=== PATIENT | male | born 1960 | race Caucasian/White ===

== ENCOUNTER 2018-11-26 16:12 | Inpatient (IN) | payer OTHER ==
[2018-11-26 18:49] VITALS: BMI 23.2
--- NOTE | 2018-11-26 20:05 | HP ---
"CIWA Score Nausea/Vomitin-No Nausea/No Vomiting Muscle Tremors: 4-Moderate,w/Arms Extend Anxiety: 3 Agitation: 3 Paroxysmal Sweats: 3 Orientation: 3-Disoriented Date>2 days Tacttile Disturbances: 0-None Auditory Disturbances: 0-None Visual Disturbances: 0-None Headache: 2-Mild CIWA-Ar Total Score: 18 - Admission Criteria [facility]ASAS Guidelines: Admission for Medically Managed Detox: Requires at least one of the followin. CIWA greater than 12 2. Seizures within the past 24 hours 3. Delirium tremens within the past 24 hours 4. Hallucinations within the past 24 hours 5. Acute intervention needed for co occurring medical disorder 6. Acute intervention needed for co occurring psychiatric disorder 7. Severe withdrawal that cannot be handled at a lower level of care (continued vomiting, continued diarrhea, abnormal vital signs) requiring intravenous medication and/or fluids 8. Patient presents the following: CIWA greater than 12 Admission Criteria Met: Admission criteria met Admission ROS [facility] Chief Complaint: Having withdrawal symptoms. Allergies/Adverse Reactions: Allergies Allergy/AdvReac Type Severity Reaction Status Date / Time Penicillins Allergy Intermediate Rash Verified 11/26/18 18:46 History of Present Illness: First admission for [address] detox @ [facility]. Here for alcohol detox. Has had treatment in other facilities in the past. Alcohol use began at age 13. Current use x 10 years. States becomes forgetful and confused when drinks. Denies other substance use. PMHx: HTN; Psoriasis; Asthma (last exacerbation 2 years ago); Past gastric ulcer MHHx: Depression, anxiety, insomnia. Denies thoughts of harming self or others. Does not see a MH Provider. Search Terms: Joshua Manleyez, 1960 Search Date: 11/26/2018 08:03:12 PM The Drug Utilization Report below displays all of the controlled substance prescriptions, if any, that your patient has filled in the last twelve months. The information displayed on this report is compiled from pharmacy submissions to the Department, and accurately reflects the information as submitted by the pharmacies. This report was requested by: Ann Park | Reference #: [id number] There are no results for the search terms that you entered. Exam Limitations: No Limitations - Ebola screening Have you traveled outside of the country in the last 21 days: No Have you had contact with anyone from an Ebola affected area: No Have you been sick,other than usual withdrawal symptoms: No (Denies recent exposure to measles) Do you have a fever: No - Review of Systems Constitutional: Chills, Diaphoresis, Changes in sleep (Difficulty staying asleep ) EENT: reports: Cataracts (Thinks may have a catarct - has an appt schedules), Blurred Vision Respiratory: reports: No Symptoms reported Cardiac: reports: Palpitations (Palpatations when drinks alot) GI: reports: Diarrhea (Brown, watery r/t alcohol use and past hx ulcer. Used to take Zantac) : reports: No Symptoms Reported Musculoskeletal: reports: No Symptoms Reported Integumentary: reports: Rash (Psoriasis) Endocrine: reports: Increased Thirst Hematology: reports: No Symptoms Reported Psychiatric: reports: Judgement Intact, Agitated, Anxious, Disorientated ( Unsure of month, year, or date) Other Systems: Reviewed and Negative Patient History - Smoking Cessation Smoking history: Never smoked Have you smoked in the past 12 months: No Hx Chewing Tobacco Use: No Initiated information on smoking cessation: No - Substance & Tx. History Hx Alcohol Use: Yes Hx Substance Use: Yes Substance Use Type: Alcohol Hx Substance Use Treatment: Yes (multiple detoxes) - Substances abused Alcohol Substance route: Oral Frequency: Daily Amount used: 3 (40 oz )beers Age of first use: 13 Date of last use: 11/26/18 Admission Physical Exam S - Vital Signs Vital Signs: Vital Signs - 24 hr 11/26/18 11/26/18 18:46 19:11 Temperature 98.8 F 98.8 F Pulse Rate 79 79 Respiratory 18 18 Rate Blood Pressure 134/83 134/83 - Physical General Appearance: Yes: Nourished, Mild Distress, Alcohol on Breath, Tremorous , Irritable, Sweating, Anxious HEENTM: Yes: EOMI (Jerking movement of eyes upon lateral gaze), Hearing grossly Normal, Normocephalic, GAYATHRI, Pharynx Normal, Other (Scleral erythema w/ injection.) Respiratory: Yes: Lungs Clear, Normal Breath Sounds, No Respiratory Distress Neck: Yes: No masses,lesions,Nodules, Supple Breast: Yes: Breast Exam Deferred Cardiology: Yes: Regular Rhythm, Regular Rate, S1, S2 Abdominal: Yes: Non Tender, Flat, Soft, Increased Bowel Sounds Genitourinary: Yes: Within Normal Limits Back: Yes: Normal Inspection Musculoskeletal: Yes: full range of Motion Extremities: Yes: Normal Capillary Refill, Normal Range of Motion, Tremors ( gross) Neurological: Yes: assignment officer II-XII NML intact (Jerking movement of eyes upon lateral gaze), Alert, Motor Strength 5/5, Normal Response, Disoriented Integumentary: Yes: Normal Color, Warm, Other (Generalized, large rediish patches w/ mcgee, shiny tissue.(Head, back, legs, arms)) Lymphatic: Yes: Within Normal Limits - Diagnostic (1) Alcohol dependence with uncomplicated withdrawal Current Visit: Yes Status: Acute (2) Psoriasis Current Visit: Yes Status: Chronic (3) Insomnia Current Visit: Yes Status: Chronic Qualifiers: Insomnia type: unspecified Qualified Code(s): G47.00 - Insomnia, unspecified (4) History of asthma Current Visit: No Status: Chronic (5) Acid reflux Current Visit: Yes Status: Chronic Qualifiers: Esophagitis presence: without esophagitis Qualified Code(s): K21.9 - Gastro -esophageal reflux disease without esophagitis (6) Nystagmus Current Visit: Yes Status: Acute (7) Hypertension Current Visit: Yes Status: Chronic Qualifiers: Hypertension type: unspecified Qualified Code(s): I10 - Essential (primary ) hypertension Cleared for Admission [facility] - Detox or Rehab [facility] Level of Care: Medically Managed Detox Regimen/Protocol: Librium Claeared for Rehab Admission: No Breathalyzer - Breathalyzer Breathalyzer: 0.172 Urine Drug Screen - Test Device Lot number: [id number] Expiration date: 08/12/19 - Control Is test valid?: Yes - Results Drug screen NEGATIVE: Yes Inpatient Rehab Admission - Rehab Decision to Admit Inpatient rehab admission?: No"
[2018-11-26] MEDS ORDERED: MAGNESIUM CITRATE 300 ML BOTTLE PO PRN (20:35)
[2018-11-26] MEDS ORDERED: MENTHOL/PHENOL 1 EACH UD MM PRN (20:35)
[2018-11-26] MEDS ORDERED: MAGNESIUM HYDROX 2400MG/30ML ORAL SUSPENSION 30 ML CUP PO PRN (20:35)
[2018-11-26] MEDS ORDERED: ACETAMINOPHEN 325 MG TABLET (FP) PO PRN ×2 (20:35)
[2018-11-26] MEDS ORDERED: MAG HYDROX/AL HYDROX/SIMETH 30 ML UNIT-DOSE CUP PO PRN (20:35)
[2018-11-26] MEDS ORDERED: IBUPROFEN 400 MG TABLET (FP) PO PRN (20:35)
[2018-11-26] MEDS ORDERED: METHOCARBAMOL 500 MG TABLET PO PRN (20:35)
[2018-11-26] MEDS ORDERED: BISMUTH SUBSALICYLATE 524 MG/30 ML UD PO PRN (20:35)
[2018-11-26] MEDS ORDERED: PROCHLORPERAZINE MALEATE 5 MG TABLET PO PRN (20:35)
[2018-11-26] MEDS ORDERED: ALBUTEROL SO4 0.083% IH SOL 2.5 MG/3 ML VIAL.NEB. NEB PRN (20:38)
[2018-11-26] MEDS ORDERED: chlordiazePOXIDE HCL 10 MG CAPSULE PO ONE (21:30)
[2018-11-26] MEDS ORDERED: BETAMETHASONE DIP 0.05% TP LOTION 30 ML BOTTLE TP SCH (22:00)
[2018-11-26] MEDS: chlordiazePOXIDE HCL 25 MG CAPSULE PO SCH (22:54)
[2018-11-26] MEDS: THIAMINE HCL 100 MG TABLET (FP) PO SCH (22:56)
[2018-11-27] MEDS: chlordiazePOXIDE HCL 25 MG CAPSULE PO SCH ×4 (05:27→22:16)
[2018-11-27] MEDS: chlordiazePOXIDE HCL 25 MG CAPSULE PO PRN ×2 (07:24→14:30)
[2018-11-27 10:00] LABS: HEMATOCRIT 41.5 % (35.4-49); HEMOGLOBIN 13.9 GM/dL (11.7-16.9); MCH 31.6 pg (25.7-33.7); MCHC 33.5 g/dl (32.0-35.9); MEAN CELL VOLUME 94.4 fl (80-96); MEAN PLT VOLUME 8.7 fl (7.5-11.1); PLATELET COUNT 55 K/MM3 (134-434); RDW 13.6 % (11.9-15.9); WHITE BLOOD COUNT 3.1 K/mm3 (4.0-10.0)
[2018-11-27] MEDS ORDERED: BETAMETHASONE DIP 0.05% TP LOTION 30 ML BOTTLE TP SCH (10:00)
[2018-11-27] MEDS: RANITIDINE HCL 150 MG TABLET (FP) PO SCH (10:08)
[2018-11-27] MEDS: LISINOPRIL 20 MG TABLET (FP) PO SCH (10:08)
[2018-11-27] MEDS: PRENATAL VITAMINS W/ FOLIC ACID TABLET (FP) PO SCH (10:08)
[2018-11-27 10:13] LABS: ALBUMIN 3.9 g/dl (3.4-5.0); BILIRUBIN,TOTAL 0.8 mg/dL (0.2-1); CALCIUM 9.2 mg/dL (8.5-10.1); CREATININE 0.6 mg/dL (0.55-1.3); POTASSIUM 3.8 mmol/L (3.5-5.1); TOT PROT 8.9 g/dl (6.4-8.2)
[2018-11-27 10:16] LABS: URINE APPEARANCE CLEAR; URINE BILIRUBIN NEGATIVE (NEGATIVE); URINE COLOR YELLOW; URINE GLUCOSE (UA) NEGATIVE (NEGATIVE); URINE KETONE NEGATIVE (NEGATIVE); URINE LEUK ESTERASE NEGATIVE (NEGATIVE); URINE NITRITE NEGATIVE (NEGATIVE); URINE PROTEIN NEGATIVE (NEGATIVE); URINE UROBILINOGEN 0.2 mg/dL (0.2-1.0)
--- NOTE | 2018-11-27 10:53 | EKG ---
Test Reason : Blood Pressure : / mmHG Vent. Rate : 071 BPM Atrial Rate : 071 BPM P-R Int : 170 ms QRS Dur : 098 ms QT Int : 424 ms P-R-T Axes : 045 025 039 degrees QTc Int : 460 ms NORMAL SINUS RHYTHM NON-SPECIFIC INTRA-VENTRICULAR CONDUCTION DELAY NO PREVIOUS ECGS AVAILABLE Confirmed by TIM SEVILLA MD ([id number]) on 11/27/2018 10:52:52 AM Referred By: Confirmed By:TIM SEVILLA MD
--- NOTE | 2018-11-27 13:12 | PN ---
S CIWA - CIWA Score Nausea/Vomitin-Mild Nausea/No Vomiting (DIARRHEA) Muscle Tremors: 4-Moderate,w/Arms Extend Anxiety: 4-Mod. Anxious/Guarded Agitation: 4-Moderately Restless Paroxysmal Sweats: 1-Minimal Palms Moist Orientation: 0-Oriented Tacttile Disturbances: 0-None Auditory Disturbances: 0-None Visual Disturbances: 0-None Headache: 0-None Present CIWA-Ar Total Score: 14 BHS Progress Note (SOAP) Subjective: ANXIETY, TREMORS, IRRITABILITY,INTERMITTENT SLEEP. HX SEVERE PSORIASIS. Objective: 11/27/18 13:08 Vital Signs 11/27/18 11/27/18 11/27/18 05:30 06:00 06:08 Temperature 98.6 F Pulse Rate 84 82 82 Respiratory 18 18 18 Rate Blood Pressure 161/89 11/27/18 11/27/18 11/27/18 06:30 07:00 07:25 Temperature 97.8 F Pulse Rate 99 H 107 H 123 H Respiratory 18 18 18 Rate Blood Pressure 158/98 11/27/18 11/27/18 11/27/18 07:30 08:00 08:30 Temperature Pulse Rate 123 H 122 H 120 H Respiratory 18 18 Rate Blood Pressure 11/27/18 09:39 Temperature 96.4 F L Pulse Rate 109 H Respiratory 18 Rate Blood Pressure 156/93 Laboratory Tests 11/26/18 11/27/18 11/27/18 11:09 07:45 07:45 WBC 3.1 L RBC 4.40 Hgb 13.9 Hct 41.5 MCV 94.4 MCH 31.6 MCHC 33.5 RDW 13.6 Plt Count 55 L MPV 8.7 Sodium 140 Potassium 3.8 Chloride 105 Carbon Dioxide 27 Anion Gap 8 BUN 9 Creatinine 0.6 Est GFR (CKD-EPI)AfAm 129.36 Est GFR (CKD-EPI)NonAf 111.61 Random Glucose 93 Calcium 9.2 Total Bilirubin 0.8 AST 278 H ALT 114 H Alkaline Phosphatase 74 Total Protein 8.9 H Albumin 3.9 Urine Color Yellow Urine Appearance Clear Urine pH 5.0 Ur Specific [place] 1.011 Urine Protein Negative Urine Glucose (UA) Negative Urine Ketones Negative Urine Blood Negative Urine Nitrite Negative Urine Bilirubin Negative Urine Urobilinogen 0.2 Ur Leukocyte Esterase Negative ELEVATED AST/ALT Assessment: 11/27/18 13:09 WITHDRAWAL SX Plan: CONTINUE DETOX BETAMETHASONE OINTMENT TO AFFECTED SKIN AREAS DIRECTED. MELATONIN FOR INSOMNIA DIRECTED. INCREASE PO FLUIDS REPEAT ALT/AST ON 11/29/18
[2018-11-27] MEDS: BETAMETHASONE DIP 0.05% TP LOTION 30 ML BOTTLE TP SCH (22:16)
[2018-11-27] MEDS: THIAMINE HCL 100 MG TABLET (FP) PO SCH (22:16)
[2018-11-27] MEDS: MELATONIN 5 MG TABLETS PO PRN (22:17)
[2018-11-28] MEDS: chlordiazePOXIDE HCL 25 MG CAPSULE PO SCH ×3 (05:35→17:47)
[2018-11-28] MEDS ORDERED: cloNIDine HCL 0.1 MG TABLET PO PRN (08:45)
[2018-11-28] MEDS: BETAMETHASONE DIP 0.05% TP LOTION 30 ML BOTTLE TP SCH ×2 (10:09→22:42)
[2018-11-28] MEDS: RANITIDINE HCL 150 MG TABLET (FP) PO SCH (10:10)
[2018-11-28] MEDS: PRENATAL VITAMINS W/ FOLIC ACID TABLET (FP) PO SCH (10:10)
[2018-11-28] MEDS: LISINOPRIL 20 MG TABLET (FP) PO SCH (10:10)
--- NOTE | 2018-11-28 13:03 | PN ---
[facility] CIWA - CIWA Score Nausea/Vomitin-Mild Nausea/No Vomiting Muscle Tremors: 3 Anxiety: 2 Agitation: 2 Paroxysmal Sweats: 1-Minimal Palms Moist Orientation: 0-Oriented Tacttile Disturbances: 0-None Auditory Disturbances: 0-None Visual Disturbances: 0-None Headache: 1-Very Mild CIWA-Ar Total Score: 10 S Progress Note (SOAP) Subjective: long history of hypertension treated with lisinopril 20 mg po daily addition clonidine 0.1 mg po q6h prn Objective: 11/28/18 13:05 Vital Signs Temperature 99.8 F H 11/28/18 09:07 Pulse Rate 87 11/28/18 09:07 Respiratory Rate 18 11/28/18 09:07 Blood Pressure 139/79 11/28/18 09:07 O2 Sat by Pulse Oximetry (%) Laboratory Last Values WBC 3.1 K/mm3 (4.0-10.0) L 11/27/18 07:45 RBC 4.40 M/mm3 (4.00-5.60) 11/27/18 07:45 Hgb 13.9 GM/dL (11.7-16.9) 11/27/18 07:45 Hct 41.5 % (35.4-49) 11/27/18 07:45 MCV 94.4 fl (80-96) 11/27/18 07:45 MCH 31.6 pg (25.7-33.7) 11/27/18 07:45 MCHC 33.5 g/dl (32.0-35.9) 11/27/18 07:45 RDW 13.6 % (11.9-15.9) 11/27/18 07:45 Plt Count 55 K/MM3 (134-434) L 11/27/18 07:45 MPV 8.7 fl (7.5-11.1) 11/27/18 07:45 Sodium 140 mmol/L (136-145) 11/27/18 07:45 Potassium 3.8 mmol/L (3.5-5.1) 11/27/18 07:45 Chloride 105 mmol/L (98-107) 11/27/18 07:45 Carbon Dioxide 27 mmol/L (21-32) 11/27/18 07:45 Anion Gap 8 MMOL/L (8-16) 11/27/18 07:45 BUN 9 mg/dL (7-18) 11/27/18 07:45 Creatinine 0.6 mg/dL (0.55-1.3) 11/27/18 07:45 Est GFR (CKD-EPI)AfAm 129.36 11/27/18 07:45 Est GFR (CKD-EPI)NonAf 111.61 11/27/18 07:45 Random Glucose 93 mg/dL (74-106) 11/27/18 07:45 Calcium 9.2 mg/dL (8.5-10.1) 11/27/18 07:45 Total Bilirubin 0.8 mg/dL (0.2-1) 11/27/18 07:45 AST 278 U/L (15-37) H 11/27/18 07:45 ALT 114 U/L (13-61) H 11/27/18 07:45 Alkaline Phosphatase 74 U/L (45-117) 11/27/18 07:45 Total Protein 8.9 g/dl (6.4-8.2) H 11/27/18 07:45 Albumin 3.9 g/dl (3.4-5.0) 11/27/18 07:45 Urine Color Yellow 11/26/18 11:09 Urine Appearance Clear 11/26/18 11:09 Urine pH 5.0 (5.0-8.0) 11/26/18 11:09 Ur Specific [place] 1.011 (1.010-1.035) 11/26/18 11:09 Urine Protein Negative (NEGATIVE) 11/26/18 11:09 Urine Glucose (UA) Negative (NEGATIVE) 11/26/18 11:09 Urine Ketones Negative (NEGATIVE) 11/26/18 11:09 Urine Blood Negative (NEGATIVE) 11/26/18 11:09 Urine Nitrite Negative (NEGATIVE) 11/26/18 11:09 Urine Bilirubin Negative (NEGATIVE) 11/26/18 11:09 Urine Urobilinogen 0.2 mg/dL (0.2-1.0) 11/26/18 11:09 Ur Leukocyte Esterase Negative (NEGATIVE) 11/26/18 11:09 RPR Titer Nonreactive (NONREACTIVE) 11/27/18 07:45 lab noted repeat cbc repeat ast 11/28/18 13:07 Assessment: 11/28/18 13:07 alcohol withdrawal sx Plan: continue detox
[2018-11-28] MEDS: THIAMINE HCL 100 MG TABLET (FP) PO SCH (22:15)
[2018-11-28] MEDS: MELATONIN 5 MG TABLETS PO PRN (22:16)
[2018-11-28] MEDS ORDERED: chlordiazePOXIDE HCL 10 MG CAPSULE PO PRN (23:00)
[2018-11-28] MEDS: chlordiazePOXIDE HCL 10 MG CAPSULE PO SCH (23:05)
[2018-11-29] MEDS: chlordiazePOXIDE HCL 10 MG CAPSULE PO SCH ×3 (05:39→18:10)
[2018-11-29] MEDS: RANITIDINE HCL 150 MG TABLET (FP) PO SCH (10:22)
[2018-11-29] MEDS: PRENATAL VITAMINS W/ FOLIC ACID TABLET (FP) PO SCH (10:22)
[2018-11-29] MEDS: LISINOPRIL 20 MG TABLET (FP) PO SCH (10:22)
[2018-11-29] MEDS: BETAMETHASONE DIP 0.05% TP LOTION 30 ML BOTTLE TP SCH ×2 (10:23→22:15)
[2018-11-29 12:46] LABS: BASO % 0.8 % (0-2.0); HEMATOCRIT 39.9 % (35.4-49); HEMOGLOBIN 13.4 GM/dL (11.7-16.9); LYMPH % 16.9 % (8-40); MCH 31.7 pg (25.7-33.7); MCHC 33.5 g/dl (32.0-35.9); MEAN CELL VOLUME 94.4 fl (80-96); MEAN PLT VOLUME 9.2 fl (7.5-11.1); MONO % 12.9 % (3.8-10.2); NEUT % 64.4 % (42.8-82.8); PLATELET COUNT 61 K/MM3 (134-434); RBC 4.23 M/mm3 (4.00-5.60); WHITE BLOOD COUNT 3.5 K/mm3 (4.0-10.0)
--- NOTE | 2018-11-29 13:38 | PN ---
S CIWA - CIWA Score Nausea/Vomitin-Mild Nausea/No Vomiting Muscle Tremors: 1-None Visible, but [place] Anxiety: 1-Mildly Anxious Agitation: 1-Slight > Activity Paroxysmal Sweats: No Perspiration Orientation: 0-Oriented Tacttile Disturbances: 0-None Auditory Disturbances: 0-None Visual Disturbances: 0-None Headache: 1-Very Mild CIWA-Ar Total Score: 5 BHS Progress Note (SOAP) Subjective: feeling better sleep better at night more energy well-rested social with peers in day room discuss aftercare with staff to remain sober Objective: 11/29/18 13:39 Vital Signs Temperature 97.3 F L 11/29/18 13:32 Pulse Rate 92 H 11/29/18 13:32 Respiratory Rate 18 11/29/18 13:32 Blood Pressure 116/75 11/29/18 13:32 O2 Sat by Pulse Oximetry (%) Laboratory Last Values WBC 3.5 K/mm3 (4.0-10.0) L 11/29/18 08:55 RBC 4.23 M/mm3 (4.00-5.60) 11/29/18 08:55 Hgb 13.4 GM/dL (11.7-16.9) 11/29/18 08:55 Hct 39.9 % (35.4-49) 11/29/18 08:55 MCV 94.4 fl (80-96) 11/29/18 08:55 MCH 31.7 pg (25.7-33.7) 11/29/18 08:55 MCHC 33.5 g/dl (32.0-35.9) 11/29/18 08:55 RDW 13.0 % (11.9-15.9) 11/29/18 08:55 Plt Count 61 K/MM3 (134-434) L 11/29/18 08:55 MPV 9.2 fl (7.5-11.1) 11/29/18 08:55 Absolute Neuts (auto) 2.2 K/mm3 (1.5-8.0) 11/29/18 08:55 Neutrophils % 64.4 % (42.8-82.8) 11/29/18 08:55 Lymphocytes % 16.9 % (8-40) 11/29/18 08:55 Monocytes % 12.9 % (3.8-10.2) H 11/29/18 08:55 Eosinophils % 5.0 % (0-4.5) H 11/29/18 08:55 Basophils % 0.8 % (0-2.0) 11/29/18 08:55 Nucleated RBC % 0 % (0-0) 11/29/18 08:55 Sodium 140 mmol/L (136-145) 11/27/18 07:45 Potassium 3.8 mmol/L (3.5-5.1) 11/27/18 07:45 Chloride 105 mmol/L (98-107) 11/27/18 07:45 Carbon Dioxide 27 mmol/L (21-32) 11/27/18 07:45 Anion Gap 8 MMOL/L (8-16) 11/27/18 07:45 BUN 9 mg/dL (7-18) 11/27/18 07:45 Creatinine 0.6 mg/dL (0.55-1.3) 11/27/18 07:45 Est GFR (CKD-EPI)AfAm 129.36 11/27/18 07:45 Est GFR (CKD-EPI)NonAf 111.61 11/27/18 07:45 Random Glucose 93 mg/dL (74-106) 11/27/18 07:45 Calcium 9.2 mg/dL (8.5-10.1) 11/27/18 07:45 Total Bilirubin 0.8 mg/dL (0.2-1) 11/27/18 07:45 AST 494 U/L (15-37) H 11/29/18 08:55 ALT 114 U/L (13-61) H 11/27/18 07:45 Alkaline Phosphatase 74 U/L (45-117) 11/27/18 07:45 Total Protein 8.9 g/dl (6.4-8.2) H 11/27/18 07:45 Albumin 3.9 g/dl (3.4-5.0) 11/27/18 07:45 Urine Color Yellow 11/26/18 11:09 Urine Appearance Clear 11/26/18 11:09 Urine pH 5.0 (5.0-8.0) 11/26/18 11:09 Ur Specific [place] 1.011 (1.010-1.035) 11/26/18 11:09 Urine Protein Negative (NEGATIVE) 11/26/18 11:09 Urine Glucose (UA) Negative (NEGATIVE) 11/26/18 11:09 Urine Ketones Negative (NEGATIVE) 11/26/18 11:09 Urine Blood Negative (NEGATIVE) 11/26/18 11:09 Urine Nitrite Negative (NEGATIVE) 11/26/18 11:09 Urine Bilirubin Negative (NEGATIVE) 11/26/18 11:09 Urine Urobilinogen 0.2 mg/dL (0.2-1.0) 11/26/18 11:09 Ur Leukocyte Esterase Negative (NEGATIVE) 11/26/18 11:09 RPR Titer Nonreactive (NONREACTIVE) 11/27/18 07:45 lab noted ast elevation strong recommend follow up with primary care provider for liver enzyme elevation bring in lab report to follow up appointment discuss alcohol misuse related liver enzyme elevation 11/29/18 13:45 Assessment: 11/29/18 13:47 alcohol withdrawal sx 11/29/18 13:47 repeat ast Plan: continue detox
[2018-11-29] MEDS ORDERED: ALBUTEROL SO4 8 GM HFA INHALER IH PRN (13:44)
[2018-11-29] MEDS: THIAMINE HCL 100 MG TABLET (FP) PO SCH (22:14)
[2018-11-29] MEDS: MELATONIN 5 MG TABLETS PO PRN (22:15)
[2018-11-29] MEDS ORDERED: chlordiazePOXIDE HCL 10 MG CAPSULE PO SCH (23:00)
[2018-11-30 09:05] VITALS: BP 133/87; PULSE 80; TEMP 98.9
[2018-11-30] MEDS: BETAMETHASONE DIP 0.05% TP LOTION 30 ML BOTTLE TP SCH (10:09)
[2018-11-30] MEDS: LISINOPRIL 20 MG TABLET (FP) PO SCH (10:09)
[2018-11-30] MEDS: PRENATAL VITAMINS W/ FOLIC ACID TABLET (FP) PO SCH (10:09)
[2018-11-30] MEDS: RANITIDINE HCL 150 MG TABLET (FP) PO SCH (10:09)
--- NOTE | 2018-11-30 15:41 | DS ---
[facility] Detox Discharge Summary Admission Date: 11/26/18 Discharge Date: 11/30/18 - History Present History: Alcohol Dependence Additional Comments: 58 years old male admitted on 11/26/18 for alcohol withdrawal stabilization completed detox regimen aftercare [facility] Pertinent Past History: bring in medication list and lab report to aftercare appointment - Physical Exam Results Vital Signs: Vital Signs Temperature 98.9 F 11/30/18 09:05 Pulse Rate 80 11/30/18 09:05 Respiratory Rate 18 11/30/18 09:05 Blood Pressure 133/87 11/30/18 09:05 O2 Sat by Pulse Oximetry (%) Pertinent Admission Physical Exam Findings: alcohol withdrawal sx Laboratory Last Values WBC 3.5 K/mm3 (4.0-10.0) L 11/29/18 08:55 RBC 4.23 M/mm3 (4.00-5.60) 11/29/18 08:55 Hgb 13.4 GM/dL (11.7-16.9) 11/29/18 08:55 Hct 39.9 % (35.4-49) 11/29/18 08:55 MCV 94.4 fl (80-96) 11/29/18 08:55 MCH 31.7 pg (25.7-33.7) 11/29/18 08:55 MCHC 33.5 g/dl (32.0-35.9) 11/29/18 08:55 RDW 13.0 % (11.9-15.9) 11/29/18 08:55 Plt Count 61 K/MM3 (134-434) L 11/29/18 08:55 MPV 9.2 fl (7.5-11.1) 11/29/18 08:55 Absolute Neuts (auto) 2.2 K/mm3 (1.5-8.0) 11/29/18 08:55 Neutrophils % 64.4 % (42.8-82.8) 11/29/18 08:55 Lymphocytes % 16.9 % (8-40) 11/29/18 08:55 Monocytes % 12.9 % (3.8-10.2) H 11/29/18 08:55 Eosinophils % 5.0 % (0-4.5) H 11/29/18 08:55 Basophils % 0.8 % (0-2.0) 11/29/18 08:55 Nucleated RBC % 0 % (0-0) 11/29/18 08:55 Sodium 140 mmol/L (136-145) 11/27/18 07:45 Potassium 3.8 mmol/L (3.5-5.1) 11/27/18 07:45 Chloride 105 mmol/L (98-107) 11/27/18 07:45 Carbon Dioxide 27 mmol/L (21-32) 11/27/18 07:45 Anion Gap 8 MMOL/L (8-16) 11/27/18 07:45 BUN 9 mg/dL (7-18) 11/27/18 07:45 Creatinine 0.6 mg/dL (0.55-1.3) 11/27/18 07:45 Est GFR (CKD-EPI)AfAm 129.36 11/27/18 07:45 Est GFR (CKD-EPI)NonAf 111.61 11/27/18 07:45 Random Glucose 93 mg/dL (74-106) 11/27/18 07:45 Calcium 9.2 mg/dL (8.5-10.1) 11/27/18 07:45 Total Bilirubin 0.8 mg/dL (0.2-1) 11/27/18 07:45 AST 354 U/L (15-37) H 11/30/18 07:00 ALT 114 U/L (13-61) H 11/27/18 07:45 Alkaline Phosphatase 74 U/L (45-117) 11/27/18 07:45 Total Protein 8.9 g/dl (6.4-8.2) H 11/27/18 07:45 Albumin 3.9 g/dl (3.4-5.0) 11/27/18 07:45 Urine Color Yellow 11/26/18 11:09 Urine Appearance Clear 11/26/18 11:09 Urine pH 5.0 (5.0-8.0) 11/26/18 11:09 Ur Specific [place] 1.011 (1.010-1.035) 11/26/18 11:09 Urine Protein Negative (NEGATIVE) 11/26/18 11:09 Urine Glucose (UA) Negative (NEGATIVE) 11/26/18 11:09 Urine Ketones Negative (NEGATIVE) 11/26/18 11:09 Urine Blood Negative (NEGATIVE) 11/26/18 11:09 Urine Nitrite Negative (NEGATIVE) 11/26/18 11:09 Urine Bilirubin Negative (NEGATIVE) 11/26/18 11:09 Urine Urobilinogen 0.2 mg/dL (0.2-1.0) 11/26/18 11:09 Ur Leukocyte Esterase Negative (NEGATIVE) 11/26/18 11:09 RPR Titer Nonreactive (NONREACTIVE) 11/27/18 07:45 lab noted bring in lab report to follow up ast elevation discuss alcohol misuse related ast elevation - Treatment Hospital Course: Detox Protocol Followed, Detoxed Safely, Responded well, Discharged Condition Good, Rehab Referral Accepted Patient has Accepted a Rehab Referral to: [facility] - Medication Discharge Medications: Ambulatory Orders Lisinopril 20 mg PO DAILY #14 tablet 11/29/18 - Diagnosis (1) Alcohol dependence with uncomplicated withdrawal Status: Acute (2) Hypertension Status: Chronic Qualifiers: Hypertension type: essential hypertension Qualified Code(s): I10 - Essential (primary) hypertension - AMA Did Patient Leave Against Medical Advice: No
== END 2018-11-30 10:46 | disposition home or self-care (01) | DRG 775 ==
LOC: YASAS 16:12 → Y3N 21:21
PROVIDERS: ADMIT Surgery; ATTEND Surgery
PROC: HZ2ZZZZ Detoxification Services for Substance Abuse Treatment (ICD-10-PCS; principal; 2018-11-26)
DX: F10.230 Alcohol dependence with withdrawal, uncomplicated (principal); I10 Essential (primary) hypertension; L40.9 Psoriasis, unspecified; G47.00 Insomnia, unspecified; K21.9 Gastro-esophageal reflux disease without esophagitis; H55.00 Unspecified nystagmus; Z88.0 Allergy status to penicillin
CPT/HCPCS: 36415; 80053; 81003; 84450; 85025; 85027; 86593; 93005; 93010; J0735

== ENCOUNTER 2023-08-27 01:02 | Observation (INO) | payer OTHER ==
[2023-08-27] MEDS ORDERED: chlordiazePOXIDE HCL 25 MG CAPSULE ONE (02:27)
[2023-08-27 02:29] LABS: HEMATOCRIT 34.2 % (35.4-49); HEMOGLOBIN 12.1 GM/dL (11.7-16.9); MCH 32.1 pg (25.7-33.7); MCHC 35.2 g/dl (32.0-35.9); MEAN CELL VOLUME 91.2 fl (80-96); MEAN PLT VOLUME 8.6 fl (7.5-11.1); PLATELET COUNT 260 10^3/uL (134-434); RBC 3.75 M/mm3 (4.00-5.60); RDW 13.7 % (11.9-15.9); WHITE BLOOD COUNT 4.4 K/mm3 (4.0-10.0)
[2023-08-27] MEDS: chlordiazePOXIDE HCL 25 MG CAPSULE PO ONE (02:29)
[2023-08-27 02:35] LABS: INR 1.17 (0.83-1.09); PROTHROMBIN TIME (PATIENT) 13.6 SEC (9.7-13.0)
[2023-08-27 02:38] LABS: ACTIVATED PTT 29.1 SECONDS (25.2-36.5)
[2023-08-27 02:55] LABS: POTASSIUM 3.5 mmol/L (3.5-5.1)
[2023-08-27 02:57] LABS: CALCIUM 9.1 mg/dL (8.5-10.1)
[2023-08-27 02:58] LABS: ALBUMIN 3.2 g/dl (3.4-5.0); MAGNESIUM 2.3 mg/dL (1.8-2.4)
[2023-08-27 03:00] LABS: CREATININE 0.7 mg/dL (0.55-1.3)
[2023-08-27 03:02] LABS: BILIRUBIN,TOTAL 0.5 mg/dL (0.2-1); TOT PROT 7.4 g/dl (6.4-8.2)
[2023-08-27 03:06] LABS: N-TERMINAL BNP 306.8 pg/ml (5-125)
[2023-08-27 03:30] LABS: ANISOCYTOSIS 0; MACROCYTOSIS 0; ROULEAU 1+
[2023-08-27] MEDS ORDERED: LORazepam 1 MG TABLET PO PRN (06:23)
[2023-08-27] MEDS: INSULIN ASPART SLIDING SCALE (NOVOLOG) 1 VIAL SQ SCH ×2 (06:31→07:20)
[2023-08-27 06:49] LABS: EPI CELLS 7 /uL (0-25.1); HYALINE CASTS 1 /uL (0-3.1); URINE APPEARANCE CLEAR; URINE BACTERIA 57 /uL (0-1359); URINE BILIRUBIN NEGATIVE (NEGATIVE); URINE COLOR DK YELLOW; URINE GLUCOSE (UA) NEGATIVE (NEGATIVE); URINE KETONE NEGATIVE (NEGATIVE); URINE LEUK ESTERASE TRACE (NEGATIVE); URINE NITRITE NEGATIVE (NEGATIVE); URINE PROTEIN NEGATIVE (NEGATIVE); URINE RBC 19 /uL (0-23.9); URINE WBC 20 /uL (0-25.8)
[2023-08-27 07:31] LABS: HEMOGLOBIN 12.4 GM/dL (11.7-16.9); MCH 31.7 pg (25.7-33.7); MCHC 34.5 g/dl (32.0-35.9); MEAN CELL VOLUME 91.7 fl (80-96); MEAN PLT VOLUME 8.8 fl (7.5-11.1); PLATELET COUNT 247 10^3/uL (134-434); RBC 3.92 M/mm3 (4.00-5.60); RDW 13.6 % (11.9-15.9); WHITE BLOOD COUNT 3.9 K/mm3 (4.0-10.0)
[2023-08-27 07:44] LABS: PHENCYCLIDINE,URINE NEGATIVE (NEGATIVE); URINE BARBITURATES NEGATIVE (NEGATIVE)
[2023-08-27 07:45] LABS: METHADONE, UR NEGATIVE (NEGATIVE); OPIATES, URI NEGATIVE (NEGATIVE)
[2023-08-27 07:46] LABS: COCAINE, UR NEGATIVE (NEGATIVE); URINE AMPHETAMINES NEGATIVE (NEGATIVE); URINE BENZODIAZEPINES POSITIVE (NEGATIVE)
[2023-08-27 07:51] LABS: POTASSIUM 3.6 mmol/L (3.5-5.1)
[2023-08-27 07:53] LABS: ALBUMIN 3.2 g/dl (3.4-5.0); BLOOD UREA NITROGEN 15.8 mg/dL (7-18); CALCIUM 8.8 mg/dL (8.5-10.1); MAGNESIUM 2.4 mg/dL (1.8-2.4)
[2023-08-27 07:56] LABS: CREATININE 0.7 mg/dL (0.55-1.3)
[2023-08-27 07:57] LABS: PHOSPHOROUS 3.8 mg/dL (2.5-4.9)
[2023-08-27 07:58] LABS: BILIRUBIN,TOTAL 0.7 mg/dL (0.2-1); TOT PROT 7.2 g/dl (6.4-8.2)
[2023-08-27] MEDS ORDERED: ENOXAPARIN NA (PORCINE) 40 MG/0.4 ML DISP.SYRIN SQ SCH (10:00)
[2023-08-27] MEDS: THIAMINE HCL 100 MG TABLET (FP) PO SCH (11:31)
[2023-08-27] MEDS: ASPIRIN COATED 81 MG TABLET.EC PO SCH (11:31)
[2023-08-27] MEDS: APIXABAN 5 MG TABLET PO SCH (11:32)
[2023-08-27] MEDS: FUROSEMIDE 20 MG TABLET (FP) PO SCH (11:32)
[2023-08-27] MEDS: SPIRONOLACTONE 25 MG TABLET PO SCH (11:32)
[2023-08-27] MEDS: FLUoxetine HCL 20 MG CAPSULE PO SCH (11:32)
[2023-08-27] MEDS: FOLIC ACID 1 MG TABLET (FP) PO SCH (11:32)
[2023-08-27] MEDS: FOLIC ACID INJECTION - 1 MG, THIAMINE HCL 100 MG, MULTIVIT INJECTION ADULT 10 ML in SOD... IVPB ONE (12:34)
[2023-08-27] MEDS: TRIAMCINOLONE ACET 0.5% CREAM 15 GM TUBE TP SCH (13:35)
[2023-08-27] MEDS: FLU VACCINE (FLULAVAL) PF 60 MCG/0.5 ML SYRINGE 2023-2024 IM ONE (14:56)
[2023-08-27] MEDS: SACUBITRIL/VALSARTAN 24 MG-26 MG TABLET PO SCH ×2 (15:05→15:22)
[2023-08-27 16:08] VITALS: BMI 21.2
[2023-08-27] MEDS: ATORVASTATIN CA 40 MG TABLET (FP) PO SCH (21:50)
[2023-08-27] MEDS: MIRTAZAPINE 15 MG TABLET (FP) PO SCH (21:50)
[2023-08-28 07:19] LABS: HEMOGLOBIN 12.8 GM/dL (11.7-16.9); MCH 31.8 pg (25.7-33.7); MCHC 34.7 g/dl (32.0-35.9); MEAN CELL VOLUME 91.5 fl (80-96); MEAN PLT VOLUME 8.6 fl (7.5-11.1); PLATELET COUNT 265 10^3/uL (134-434); RBC 4.04 M/mm3 (4.00-5.60); RDW 13.4 % (11.9-15.9); WHITE BLOOD COUNT 4.4 K/mm3 (4.0-10.0)
[2023-08-28] MEDS ORDERED: REGADENOSON 0.4 MG/5 ML PRE-FILLED SYRINGE IVPUSH ONE (12:07)
[2023-08-28] MEDS: EMPAGLIFLOZIN (JARDIANCE) 25 MG TABLET PO SCH (13:02)
[2023-08-28] MEDS: REGADENOSON 0.4 MG/5 ML PRE-FILLED SYRINGE IVPUSH ONE (13:45)
[2023-08-28] MEDS ORDERED: EMPAGLIFLOZIN (JARDIANCE) 10 MG TABLET PO SCH (14:56)
[2023-08-28 15:18] VITALS: BP 106/80; PULSE 95; RESP 18; TEMP 99
[2023-08-28] MEDS ORDERED: CARVEDILOL 6.25 MG TABLET (FP) PO SCH (20:00)
== END 2023-08-28 16:36 | disposition home or self-care (01) ==
LOC: JER 01:02 → JERBED 03:39 → J4W 12:20
PROVIDERS: ADMIT Internal Medicine; ATTEND Internal Medicine
PROC: 3E033GC Introduction of Other Therapeutic Substance into Peripheral Vein, Percutaneous Approach (ICD-10-PCS; principal; 2023-08-27)
PROC: 3E023GC Introduction of Other Therapeutic Substance into Muscle, Percutaneous Approach (ICD-10-PCS; 2023-08-27)
PROC: 3E033GC Introduction of Other Therapeutic Substance into Peripheral Vein, Percutaneous Approach (ICD-10-PCS; 2023-08-27)
DX: Z13.89 Encounter for screening for other disorder (principal); F10.99 Alcohol use, unspecified with unspecified alcohol-induced disorder; I48.91 Unspecified atrial fibrillation; E11.9 Type 2 diabetes mellitus without complications; I10 Essential (primary) hypertension; E78.5 Hyperlipidemia, unspecified; R77.8 Other specified abnormalities of plasma proteins; I44.7 Left bundle-branch block, unspecified; K27.9 Peptic ulcer, site unspecified, unspecified as acute or chronic, without hemorrhage or perforation; J45.909 Unspecified asthma, uncomplicated; N32.81 Overactive bladder; R07.9 Chest pain, unspecified; R06.02 Shortness of breath; R42 Dizziness and giddiness; R11.0 Nausea; R50.9 Fever, unspecified; R19.7 Diarrhea, unspecified; R55 Syncope and collapse; L40.9 Psoriasis, unspecified; Z29.89 Encounter for other specified prophylactic measures; Z88.0 Allergy status to penicillin; F17.200 Nicotine dependence, unspecified, uncomplicated
CPT/HCPCS: 0241U-QW; 36415; 71045-TC-FY; 74176-TC; 76705-TC; 78452-TC; 80053; 80061; 80307; 81003; 82550; 82962; 83735; 83880; 84100; 84443; 84484; 85025; 85027; 85610; 85730; 90471; 90686; 93005; 93010; 93017; 93306-TC; 96365; 96372; 96375; 97116-GP; 97161-GP; 99285-25; A9502; G0378; J2785

== ENCOUNTER 2024-03-21 11:09 | Inpatient (IN) | payer OTHER ==
[2024-03-21 11:30] VITALS: BMI 22.1
[2024-03-21] MEDS ORDERED: BENZOCAINE/MENTHOL (CHLORASEPTIC ) LOZENGE MM PRN (12:37)
[2024-03-21] MEDS ORDERED: IBUPROFEN 400 MG TABLET (FP) PO PRN (12:37)
[2024-03-21] MEDS ORDERED: NICOTINE POLACRILEX 2 MG LOZENGE BC PRN (12:37)
[2024-03-21] MEDS ORDERED: P-EPHED 60MG/TRIPROLIDI 2.5MG TABLET PO PRN (12:37)
[2024-03-21] MEDS ORDERED: IBUPROFEN 600 MG TABLET (FP) PO PRN (12:37)
[2024-03-21] MEDS ORDERED: BENZONATATE 200 MG CAPSULE PO PRN (12:37)
[2024-03-21] MEDS ORDERED: NICOTINE POLACRILEX 2 MG GUM BUC PRN (12:37)
[2024-03-21] MEDS ORDERED: LOPERAMIDE HCL 2 MG CAPSULE PO PRN (12:37)
[2024-03-21] MEDS ORDERED: METHOCARBAMOL 500 MG TABLET PO PRN (12:37)
[2024-03-21] MEDS ORDERED: NALOXONE (NARCAN) HCL 4 MG/0.1 ML SPRAY NS PRN (12:37)
[2024-03-21] MEDS ORDERED: ONDANSETRON *ODT* 4 MG TABLET SL PRN (12:37)
[2024-03-21] MEDS ORDERED: guaiFENesin 600 MG TABLET.ER (FP) PO PRN (12:37)
[2024-03-21] MEDS ORDERED: BISMUTH SUBSALICYLATE 524 MG/30 ML PO PRN (12:37)
[2024-03-21] MEDS ORDERED: MAGNESIUM HYDROX 2400MG/30ML ORAL SUSPENSION 30 ML CUP PO PRN (12:37)
[2024-03-21] MEDS ORDERED: NALOXONE HCL 0.4 MG/ML VIAL IM PRN (12:37)
[2024-03-21] MEDS ORDERED: DICYCLOMINE HCL 10 MG CAPSULE PO PRN (12:37)
[2024-03-21] MEDS ORDERED: MAG HYDROX/AL HYDROX/SIMETH 30 ML UNIT-DOSE CUP PO PRN (12:37)
[2024-03-21] MEDS ORDERED: POLYETHYLENE GLYCOL (HEALTHYLAX) 3350 17 GM PACKET PO PRN (12:37)
[2024-03-21] MEDS: ACETAMINOPHEN 325 MG TABLET (FP) PO PRN (13:51)
[2024-03-21] MEDS: BRIMONIDINE TARTRATE 0.2% OPHTHALMIC 5 ML BOTTLE OD SCH (15:00)
[2024-03-21] MEDS: APIXABAN 5 MG TABLET PO SCH (21:28)
[2024-03-21] MEDS: MELATONIN 5 MG TABLETS PO SCH (21:28)
[2024-03-21] MEDS: DORZOLAMIDE 2% HCL OPHTHALMIC SOLUTION 10 ML BOTTLE OU SCH (21:28)
[2024-03-21] MEDS: THIAMINE 100 MG TABLET PO SCH (21:28)
[2024-03-21] MEDS: TIMOLOL 0.5% OPHTHALMIC SOL 5 ML BOTTLE OU SCH (21:29)
[2024-03-22] MEDS: PRENATAL VITAMINS W/ FOLIC ACID TABLET (FP) PO SCH (09:36)
[2024-03-22] MEDS: prednisoLONE ACETATE 1% OPHTH SUSP 5 ML BOTTLE OD SCH (09:37)
[2024-03-22] MEDS: OFLOXACIN 0.3% OPHTHALMIC SOLUTION 5 ML BOTTLE OD SCH (09:37)
[2024-03-22] MEDS ORDERED: PATIENT'S OWN MEDICATION (NON-FORMULARY) (Dorzolamide/Timolol/Pf [Dorzolamide-Timolol 2%-0 OD SCH (10:00)
[2024-03-22] MEDS: SERTRALINE HCL 50 MG TABLET (FP) PO SCH (10:09)
[2024-03-22] MEDS: metoPROLOL SUCCINATE 25 MG TAB.SR.24H (FP) PO SCH (10:26)
[2024-03-22 12:13] LABS: HEMATOCRIT 36.6 % (35.4-49); HEMOGLOBIN 12.4 GM/dL (11.7-16.9); MCH 29.4 pg (25.7-33.7); MCHC 33.8 g/dl (32.0-35.9); MEAN CELL VOLUME 86.8 fl (80-96); MEAN PLT VOLUME 8.1 fl (7.5-11.1); PLATELET COUNT 179 10^3/uL (134-434); RBC 4.21 M/mm3 (4.00-5.60); RDW 14.7 % (11.9-15.9)
[2024-03-22 12:31] LABS: POTASSIUM 3.3 mmol/L (3.5-5.1)
[2024-03-22 12:33] LABS: ALBUMIN 3.7 g/dl (3.4-5.0); CALCIUM 9.6 mg/dL (8.5-10.1)
[2024-03-22 12:34] LABS: BLOOD UREA NITROGEN 12.2 mg/dL (7-18)
[2024-03-22 12:38] LABS: CREATININE 0.8 mg/dL (0.55-1.3); TOT PROT 7.5 g/dl (6.4-8.2)
[2024-03-22] MEDS: traZODone HCL 50 MG TABLET (FP) PO SCH (21:11)
[2024-03-22] MEDS: ATORVASTATIN CA 10 MG TABLET (FP) PO SCH (21:11)
[2024-03-24] MEDS: NALTREXONE HCL 50 MG TABLET PO ONE (13:54)
[2024-03-24] MEDS: DORZOLAMIDE 2% HCL OPHTHALMIC SOLUTION 10 ML BOTTLE OU SCH (13:58)
[2024-03-24] MEDS: TIMOLOL 0.5% OPHTHALMIC SOL 5 ML BOTTLE OD SCH (13:59)
[2024-03-24] MEDS: KETOROLAC TROMETHAMINE 0.5% EYE DROP 1 DROP DROPS OD SCH (14:14)
[2024-03-24] MEDS: INSULIN ASPART SLIDING SCALE (NOVOLOG) 1 VIAL SQ SCH (16:57)
[2024-03-25] MEDS ORDERED: INSULIN (NOVOLOG) ASPART 100 UNITS/ML 10ML VIAL ONE (05:56)
[2024-03-25] MEDS: NALTREXONE HCL 50 MG TABLET PO SCH (10:30)
[2024-04-01] MEDS ORDERED: INSULIN (NOVOLOG) ASPART 100 UNITS/ML 10ML VIAL ONE (06:42)
[2024-04-03] MEDS ORDERED: NALTREXONE MICROSPHERES (VIVITROL) 380 MG DISP.SYRIN IM ONE (10:00)
[2024-04-04] MEDS: traZODone HCL 100 MG TABLET (FP) PO SCH (21:49)
[2024-04-11] MEDS: SELENIUM SULFIDE 2.25% 180 ML SHAMPOO TP SCH ×2 (21:15→22:28)
[2024-04-17] MEDS: NALTREXONE MICROSPHERES (VIVITROL) 380 MG DISP.SYRIN IM ONE (10:24)
[2024-04-18 06:55] VITALS: TEMP 97.6
[2024-04-18] MEDS: NALOXONE (NYS OPIOID OVERDOSE PROGRAM) 4 MG/0.1 ML SPRAY NS PRN (09:01)
[2024-04-18 09:44] VITALS: BP 136/76; PULSE 72; RESP 17
== END 2024-04-18 09:16 | disposition home or self-care (01) | DRG 772 ==
LOC: YASAS 11:09 → Y3E 12:57
PROVIDERS: ADMIT Psychiatry & Neurology Pain Medicine; ATTEND Psychiatry & Neurology Pain Medicine
PROC: HZ42ZZZ Group Counseling for Substance Abuse Treatment, Cognitive-Behavioral (ICD-10-PCS; principal; 2024-03-22)
DX: F10.20 Alcohol dependence, uncomplicated (principal); F17.210 Nicotine dependence, cigarettes, uncomplicated; F10.282 Alcohol dependence with alcohol-induced sleep disorder; F10.24 Alcohol dependence with alcohol-induced mood disorder; F32.A Depression, unspecified; H40.9 Unspecified glaucoma; G47.00 Insomnia, unspecified; I48.91 Unspecified atrial fibrillation; I11.0 Hypertensive heart disease with heart failure; I50.9 Heart failure, unspecified; J45.909 Unspecified asthma, uncomplicated; L40.9 Psoriasis, unspecified; L21.0 Seborrhea capitis; M17.10 Unilateral primary osteoarthritis, unspecified knee; Z88.0 Allergy status to penicillin; Z79.01 Long term (current) use of anticoagulants
CPT/HCPCS: 36415; 80053; 80305; 80307; 82962; 85027; 86780; 87811; 93005; 93010; J2315